=== PATIENT | female | born 1970 | race African-American/Black ===

== ENCOUNTER 2017-07-02 13:26 | Emergency (ER) | payer SELFPAY ==
[~2017-07-02] VITALS: Ht 172.7 cm; Wt 100.0 kg
[2017-07-02 14:20] LABS: HEMATOCRIT 42.6 % (36.0-46.0); MCH 27.8 PG (29.0-34.0); MCHC 33.3 G/DL (30.0-36.0); MCV 83.5 FL (83-99); MEAN PLAT.VOLUME 9.2 uM^3 (9.5-12.4); PLATELET COUNT 247 K/uL (156-360); RBC DIS.WIDTH-CV 13.5 % (11.8-14.6); RBC DIS.WIDTH-SD 41.1 % (39-53); WHITE BLOOD COUNT 8.8 K/uL (4.1-10.2)
[2017-07-02 14:39] LABS: CHLORIDE 102 mEq/L (99-109); POTASSIUM 3.7 mEq/L (3.7-5.4); SODIUM 137 mEq/L (136-147)
[2017-07-02 14:40] LABS: TROP-I INTERPRETATION NEGATIVE; TROPONIN-I < 0.01 ng/mL (0.0-0.30)
[2017-07-02 14:41] LABS: GLUCOSE 116 mg/dL (70-99)
[2017-07-02 14:42] LABS: ANION GAP 10 MEQ/L (2-14)
[2017-07-02 14:45] LABS: GFR ESTIMATE (CALCULATED) > 59 mL/min/
[2017-07-02 14:46] LABS: UREA NITROGEN (BUN) 12 mg/dL (9-23)
[2017-07-02 20:09] LABS: TROP-I INTERPRETATION NEGATIVE; TROPONIN-I < 0.01 ng/mL (0.0-0.30)
[2017-07-02] MEDS ORDERED: NAPROXEN500 MG PO (20:12)
[2017-07-02 20:39] VITALS: BP 116/75
== END 2017-07-02 20:40 | disposition home or self-care (01) ==
LOC: EME 13:26
PROVIDERS: Physician Assistant Medical
DX: J06.9 Acute upper respiratory infection, unspecified (principal); R07.9 Chest pain, unspecified; K21.9 Gastro-esophageal reflux disease without esophagitis; Z88.6 Allergy status to analgesic agent
CPT/HCPCS: 71020; 71275; 80048; 84484; 85027; 85379; 93005; 99281; 99284; J1885; J7030